=== PATIENT | male | born 1985 | race Asian ===

== ENCOUNTER 2022-05-17 11:02 | Inpatient (IN) | payer BC ==
--- OUTSIDE RECORDS SUMMARY | 2022-05-17 11:04 | XMS REPORT | Continuity of Care Document ---
:1985 Author Organization [facility] t Address [address] [place] [address] Care Team Providers Name Role Phone Pcp, Patient Does Not Have A Primary Care Physician +[id number] Therapy, [facility] Covid Infusion Attending Clinician Unavailable Jake Garcia MD Attending Clinician JAKE GARCIA Attending Clinician Unavailable Doctor Unassigned, [place] Attending Clinician Unavailable Payers Payer Name Policy Type Policy Number Effective Date Expiration Date S ource Problems This patient has no known problems. Allergies, Adverse Reactions, Alerts Allergy Allergy Status Severity Reaction(s) Onset Inactive Treating Comm ents Source Name Type Date Date Clinician NO KNOWN Drug Active Univers ALLERGIE Class ity of S [facility] Social History Social Habit Start Date Stop Date Quantity Comments Source Sex Assigned At [birth year] [facility] 00:00:00 00:00:[address] [facility] Smoking Status Start Date Stop Date Source Unknown if ever smoked [facility] Medications Ordered Filled Start Stop Current Ordering Indication Dosage Frequency Signature Comments Components Source Medication Medication Date Date Medication? Clinician (SIG) Name Name casirivimab 2020- No [id number] 1200mg 1,200 mg, Univers -imdevimab 04-18 Subcutaneo it y of (REGEN-COV 14:45: 13:27 [place], ONCE, [place] (EUA[place] 00 :00 1 dose, On Medical injection [facility] Branch 1,200 mg 04/18/21 at 0945, Routine casirivimab [id number] 1200mg 1,200 mg, [facility] -imdevimab 04-18 Subcutaneo it y of (REGEN-COV 14:45: 13:27 us, ONCE, [place] (EUA)) 00 :00 1 dose, On Medical injection Sat Branch 1,200 mg 04/18/21 at 0945, Routine Vital Signs Vital Name Observation Time Observation Value Comments Source Systolic blood 2021-04-18 14:12:00 160 mm[Hg] Univer sity of pressure [facility] Diastolic blood 2021-04-18 14:12:00 116 mm[Hg] Unive rsity [facility] Heart rate 2021-04-18 14:12:00 97 /min [facility] Body temperature 2021-04-18 14:12:00 36.11 [facility] Respiratory rate 2021-04-18 14:12:00 18 /[facility] Oxygen saturation in 2021-04-18 14:12:00 96 /min [facility] Arterial blood by [facility] Pulse oximetry [place] Body height 2021-04-18 13:29:00 172.7 cm [facility] Body weight 2021-04-18 13:29:00 106.595 kg [facility] BMI 2021-04-18 13:29:00 35.73 kg/m2 [facility] Procedures Procedure Date / Time Performed Performing Clinician Tamia e [id number] CONSENT 2021-04-18 05:01:00 [facility] Start End Encounter Admission Attending Care Care Encounter Source Date/Time Date/Time Type Type Clinicians Facility Department ID 2021-04-18 2021-04-18 Nurse Therapy, [facility] Covid Infusion [facility] [id number] [facility] 07:54:40 08:54:40 Visit Jake Garcia [id number] [place] [id number] [place] [facility] [id number] [facility] 053 Branch 2021-04-18 2021-04-[address] [facility] [id number] Univers 08:00:00 08:00:00 JAKE rowe of [facility] 2021-04-18 2021-04-18 Orders Doctor DANYA [id number] Univers 00:00:00 00:00:00 Only Unassigned, TOM [id number] ity of [place] [facility] [id number] [place] [id number] [place] [id number] Branch Results This patient has no known results.
[2022-05-17] MEDS ORDERED: CETIRIZINE HCL 5 MG TABLET ONE (11:47)
[2022-05-17] MEDS ORDERED: METOPROLOL TARTRATE 5 MG/5 ML INJ IV ONE ×2 (11:47→12:22)
[2022-05-17 11:48] LABS: Absolute Lymphocytes (CBC) 1.6 K/uL (0.7-4.9); Hematocrit 48.3 % (39.6-49.0); Lymphocytes % 19.5 % (15.3-44.8); MCV 86.5 fL (80-100); MPV 7.6 fL (7.6-11.3); RBC Red Blood Cell Count 5.58 M/uL (4.33-5.43)
[2022-05-17 12:00] LABS: SARS-CoV-2 Antigen Rapid Res Negative (Negative)
[2022-05-17 12:07] LABS: Albumin 3.8 g/dL (3.4-5.0); Bilirubin Total 0.3 mg/dL (0.2-1.0); Potassium 4.1 mmol/L (3.5-5.1); Protein, Total 7.9 g/dL (6.4-8.2)
[2022-05-17] MEDS ORDERED: HYDRALAZINE HCL 20 MG/ML VIAL ONE (13:04)
--- NOTE | 2022-05-17 14:27 | EDPHYS ---
Physician Documentation [facility] Name: Chin Tovar Age: 36 yrs Sex: Male : 1985 Arrival Date: 05/17/2022 Time: 11:04 Bed 14 Private MD: ED Physician Carie Mcgill HPI: 05/17 11:33 This 36 yrs old Male presents to ER via Ambulatory with complaints of Headache. snw 11:33 The patient complains of pain to the left side of the back of head and right side of snw the back of head. The patient describes the headache as pounding. Onset: The symptoms/episode began/occurred suddenly, 2 day(s) ago, and became persistent. Severity of symptoms: At its worst the pain was moderate. The symptoms are alleviated by nothing. pounding with cough, notes bp high all weekend. It is unknown whether or not the patient has had similar symptoms in the past. The patient has not recently seen a physician, and does not have an established primary care provider, sees only Dr. Cabrales. Historical: - Allergies: 11:17 No Known Allergies; vg1 - Home Meds: 11:17 aspirin 81 mg Oral cap [Active]; Metoprolol Tartrate Oral [Active]; losartan oral vg1 [Active]; - PMHx: 11:17 Atrial fibrillation; Hypertensive disorder; vg1 - PSHx: 11:17 None; vg1 - Immunization history:: Client reports having NOT received the Covid vaccine. - Social history:: Smoking status: Patient denies any tobacco usage or history of. ROS: 11:33 Eyes: Negative for injury, pain, redness, and discharge, ENT: Negative for injury, snw pain, and discharge, Neck: Negative for injury, pain, and swelling. 11:33 Respiratory: Negative for shortness of breath, cough, wheezing, and pleuritic chest pain, Abdomen/GI: Negative for abdominal pain, nausea, vomiting, diarrhea, and constipation, Back: Negative for injury and pain, : Negative for injury, bleeding, discharge, and swelling, MS/Extremity: Negative for injury and deformity, Skin: Negative for injury, rash, and discoloration. 11:33 Constitutional: Positive for fatigue. 11:33 Cardiovascular: Positive for palpitations. 11:33 Neuro: Positive for headache. Exam: 11:32 Constitutional: This is a well developed, well nourished patient who is awake, alert, snw and in no acute distress. Head/Face: Normocephalic, atraumatic. Eyes: Pupils equal round and reactive to light, extra-ocular motions intact. Lids and lashes normal. Conjunctiva and sclera are non-icteric and not injected. Cornea within normal limits. Periorbital areas with no swelling, redness, or edema. ENT: Nares patent. No nasal discharge, no septal abnormalities noted. Tympanic membranes are normal and external auditory canals are clear. Oropharynx with no redness, swelling, or masses, exudates, or evidence of obstruction, uvula midline. Mucous membranes moist. Neck: Trachea midline, no thyromegaly or masses palpated, and no cervical lymphadenopathy. Supple, full range of motion without nuchal rigidity, or vertebral point tenderness. No Meningismus. Chest/axilla: Normal chest wall appearance and motion. Nontender with no deformity. No lesions are appreciated. 11:32 Respiratory: Lungs have equal breath sounds bilaterally, clear to auscultation and percussion. No rales, rhonchi or wheezes noted. No increased work of breathing, no retractions or nasal flaring. Abdomen/GI: Soft, non-tender, with normal bowel sounds. No distension or tympany. No guarding or rebound. No evidence of tenderness throughout. Back: No spinal tenderness. No costovertebral tenderness. Full range of motion. Skin: Warm, dry with normal turgor. Normal color with no rashes, no lesions, and no evidence of cellulitis. MS/ Extremity: Pulses equal, no cyanosis. Neurovascular intact. Full, normal range of motion. Neuro: Awake and alert, GCS 15, oriented to person, place, time, and situation. Cranial nerves II-XII grossly intact. Motor strength 5/5 in all extremities. Sensory grossly intact. Cerebellar exam normal. Normal gait. Psych: Awake, alert, with orientation to person, place and time. Behavior, mood, and affect are within normal limits. 11:32 Cardiovascular: Rate: normal, actual rate is 87 bpm, Rhythm: irregularly irregular, Pulses: no pulse deficits are appreciated. Vital Signs: 11:14 BP 161 / 112; Pulse 87; Resp 16; Temp 98.8; Pulse Ox 100% ; Weight 111.13 kg; Height 5 vg1 ft. 8 in. (172.72 cm); Pain 0/10; 11:30 BP 148 / 108; Pulse 82; ko1 11:45 BP 148 / 106; Pulse 84; ko1 12:00 BP 143 / 114; Pulse 78; ko1 12:05 BP 144 / 109; Pulse 73; ko1 12:10 BP 150 / 113; Pulse 76; ko1 12:55 BP 156 / 119; Pulse 68; ko1 13:15 BP 140 / 96; ko1 13:30 BP 131 / 95; ko1 13:45 BP 126 / 99; ko1 14:00 BP 129 / 98; ko1 14:15 BP 139 / 98; ko1 14:30 BP 134 / 96; Pulse 96; ko1 14:45 BP 121 / 78; ko1 15:00 BP 135 / 102; Pulse 95; ko1 11:14 Body Mass Index 37.25 (111.13 kg, 172.72 cm) vg1 MDM: 11:25 Patient medically screened. snw 14:12 ED course: BP 144/117 mild headache, intermittent dizziness. snw 14:25 Data reviewed: vital signs, nurses notes. Data interpreted: Pulse oximetry: on room air snw is 100 %. Interpretation: normal. Counseling: I had a detailed discussion with the patient and/or guardian regarding: the historical points, exam findings, and any diagnostic results supporting the discharge/admit diagnosis, the presence of at least one elevated blood pressure reading (>120/80) during this emergency department visit, lab results, radiology results, the need for further work-up and treatment in the hospital. Response to treatment: There is no appreciated change of the patient's symptoms at this time, BP still elevated. Physician consultation: Odalis Clark MD was called at 14:26, was contacted at 14:26, regarding admission, to the telemetry unit. 05/17 11:27 Order name: CBC with Diff; Complete Time: 11:53 snw 05/17 11:27 Order name: CMP; Complete Time: 12:08 snw 05/17 11:27 Order name: Flu; Complete Time: 12:05 snw 05/17 11:27 Order name: SARS RAPID; Complete Time: 12:00 snw 05/17 15:22 Order name: Creatine Phosphokinase; Complete Time: 16:30 EDMS 05/17 15:22 Order name: Magnesium; Complete Time: 16:30 EDMS 05/17 15:22 Order name: NT PRO-BNP; Complete Time: 16:30 EDMS 05/17 15:23 Order name: Phosphorus; Complete Time: 16:30 EDMS 05/17 15:23 Order name: Urinalysis EDMS 05/17 15:23 Order name: Basic Metabolic Panel EDMS 05/17 15:23 Order name: Basic Metabolic Panel EDMS 05/17 15:23 Order name: CBC with Automated Diff EDMS 05/17 15:23 Order name: CBC with Automated Diff EDMS 05/17 15:24 Order name: Hemoglobin A1c EDMS 05/17 11:27 Order name: IV Saline Lock; Complete Time: 11:42 snw 05/17 11:27 Order name: Labs collected and sent; Complete Time: 11:42 snw 05/17 11:32 Order name: EKG; Complete Time: 11:32 snw 05/17 11:32 Order name: EKG - Nurse/Tech; Complete Time: 12:13 snw 05/17 11:59 Order name: BP Recheck: q20 min; Complete Time: 12:17 snw 05/17 15:20 Order name: Heart Healthy EDMS 05/17 15:24 Order name: Lipid Profile; Complete Time: 16:30 EDMS EC:16 Rate is 77 beats/min. Rhythm is irregularly irregular. QRS [place] is Normal. Clinical snw impression: Atrial Fibrillation. Administered Medications: 11:48 Drug: ZyrTEC - Cetirizine 10 mg Route: PO; ko1 11:56 Drug: Metoprolol 5 mg Route: IVP; Site: right antecubital; ko1 12:05 Drug: Metoprolol 5 mg Route: IVP; Site: right antecubital; ko1 12:24 Drug: Metoprolol 5 mg Route: IVP; Site: right forearm; ko1 13:04 Drug: hydrALAZINE 10 mg Route: IVP; Site: right antecubital; ko1 14:15 Drug: hydrALAZINE 10 mg Route: IVP; Site: right antecubital; ko1 Disposition Summary: 05/17/22 14:27 Hospitalization Ordered Hospitalization Status: Inpatient Admission snw Provider: Odalis Clark snw Location: Telemetry/MedSurg (Inpatient) snw Condition: Stable snw Problem: an acute exacerbation snw Symptoms: have worsened snw Bed/Room Type: Standard snw Room Assignment: 422(05/17/22 15:32) bd Diagnosis - Chronic atrial fibrillation snw - Hypertensive urgency snw Forms: - Medication Reconciliation Form snw - SBAR form snw Addendum: 05/20/2022 03:35 STAFF ATTESTATION STATEMENT: I was immediately available onsite in the emergency s d2 department for consultation in the care of this patient. I did not see or examine this patient. Carie Mcgill MD. Signatures: Dispatcher [employer] EDMS Ivanna Mendoza Shelly, FNP-C FNP-Marina Espinoza RN RN vg1 Carie Mcgill MD MD sd2 Trish Higgins RN RN ko1 Corrections: (The following items were deleted from the chart) 05/17 15:32 14:27 snw bd
--- NOTE | 2022-05-17 14:27 | ER ---
Nurse's Notes [facility] Name: Chin Tovar Age: 36 yrs Sex: Male : 1985 Arrival Date: 05/17/2022 Time: 11:04 Bed 14 Private MD: Diagnosis: Chronic atrial fibrillation;Hypertensive urgency Presentation: 05/17 11:14 Chief complaint: Patient states: blurred vision began at 2330, stated "tunnel vision" vg1 that lasted about 30 minutes, states at 0130 headache and tingling to Left hand/fingers and upper lip. Denies any pain, headache, dizziness, or NV at this time. Coronavirus screen: Vaccine status: Patient reports being unvaccinated. Client denies travel out of the [place] in the last 14 days. Ebola Screen: Patient negative for fever greater than or equal to 101.5 degrees Fahrenheit, and additional compatible Ebola Virus Disease symptoms Patient denies exposure to infectious person. Initial Sepsis Screen: Does the patient meet any 2 criteria? No. Patient's initial sepsis screen is negative. Does the patient have a suspected source of infection? No. Patient's initial sepsis screen is negative. Risk Assessment: Do you want to hurt yourself or someone else? Patient reports no desire to harm self or others. Onset of symptoms was May 16, 2022. 11:14 Method Of Arrival: Ambulatory vg1 11:14 Acuity: SYBIL 3 vg1 Triage Assessment: 11:17 Headache History: The patient has had previous headaches and this one is similar to vg1 previous episodes. General: Appears uncomfortable, Behavior is calm, cooperative. Pain: Denies pain. Complains of pain in head Pain currently is 3 out of 10 on a pain scale. Pain began 1 day ago. Also complains of no other associated symptoms. 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 Gait is steady, Speech is normal, Facial symmetry appears normal. Historical: - Allergies: : No Known Allergies; vg1 - Home Meds: : aspirin 81 mg Oral cap [Active]; Metoprolol Tartrate Oral [Active]; losartan oral vg1 [Active]; - PMHx: 11: Atrial fibrillation; Hypertensive disorder; vg1 - PSHx: 11:17 None; vg1 - Immunization history:: Client reports having NOT received the Covid vaccine. - Social history:: Smoking status: Patient denies any tobacco usage or history of. Screenin:20 Abuse screen: Denies threats or abuse. Denies injuries from another. Nutritional ko1 screening: No deficits noted. Tuberculosis screening: No symptoms or risk factors identified. Fall Risk None identified. Assessment: 11:20 General: Appears in no apparent distress. comfortable, Behavior is calm, cooperative, ko1 appropriate for age. Pain: Denies pain. Neuro: No deficits noted. Cardiovascular: Rhythm is atrial fibrillation. Respiratory: No deficits noted. GI: No deficits noted. : No deficits noted. EENT: No deficits noted. Derm: No deficits noted. Musculoskeletal: No deficits noted. Vital Signs: 11:14 BP 161 / 112; Pulse 87; Resp 16; Temp 98.8; Pulse Ox 100% ; Weight 111.13 kg; Height 5 vg1 ft. 8 in. (172.72 cm); Pain 0/10; 11:30 BP 148 / 108; Pulse 82; ko1 11:45 BP 148 / 106; Pulse 84; ko1 12:00 BP 143 / 114; Pulse 78; ko1 12:05 BP 144 / 109; Pulse 73; ko1 12:10 BP 150 / 113; Pulse 76; ko1 12:55 BP 156 / 119; Pulse 68; ko1 13:15 BP 140 / 96; ko1 13:30 BP 131 / 95; ko1 13:45 BP 126 / 99; ko1 14:00 BP 129 / 98; ko1 14:15 BP 139 / 98; ko1 14:30 BP 134 / 96; Pulse 96; ko1 14:45 BP 121 / 78; ko1 15:00 BP 135 / 102; Pulse 95; ko1 11:14 Body Mass Index 37.25 (111.13 kg, 172.72 cm) vg1 ED Course: 11:04 Patient arrived in ED. rg4 11:12 Yanna Buckley FNP-C is PHCP. snw 11:12 Carie Mcgill MD is Attending Physician. snw 11:17 Triage completed. vg1 11:17 Arm band placed on. vg1 11:20 Trish Higgins RN is Primary Nurse. ko1 11:20 Patient has correct armband on for positive identification. Bed in low position. Call ko1 light in reach. Side rails up X 1. Client placed on continuous cardiac and pulse oximetry monitoring. NIBP monitoring applied. athletic monitor on. 11:20 Inserted saline lock: 22 gauge in right antecubital area, using aseptic technique. ko1 Blood collected. 11:42 SARS RAPID Sent. ko1 11:42 Flu Sent. ko1 11:42 CBC with Diff Sent. ko1 11:42 CMP Sent. ko1 14:26 Odalis Clark MD is Hospitalizing Provider. snw Administered Medications: 11:48 Drug: ZyrTEC - Cetirizine 10 mg Route: PO; ko1 11:56 Drug: Metoprolol 5 mg Route: IVP; Site: right antecubital; ko1 12:05 Drug: Metoprolol 5 mg Route: IVP; Site: right antecubital; ko1 12:24 Drug: Metoprolol 5 mg Route: IVP; Site: right forearm; ko1 13:04 Drug: hydrALAZINE 10 mg Route: IVP; Site: right antecubital; ko1 14:15 Drug: hydrALAZINE 10 mg Route: IVP; Site: right antecubital; ko1 Medication: 11:20 VIS not applicable for this client. ko1 Outcome: 14:27 Decision to Hospitalize by Provider. snw 17:25 Patient left the ED. iw Signatures: Yanna Buckley, HOSPITAL SUPERVISOR-C HOSPITAL SUPERVISOR-Csnw Kim Fitzpatrick RN RN iw Garcia, Rubi rg4 Garcia, Victoria RN RN 1 Trish Higgins RN RN ko1
[2022-05-17] MEDS ORDERED: HYDROCODONE/APAP 5/325 MG TAB PO PRN (15:18)
[2022-05-17] MEDS ORDERED: ACETAMINOPHEN 500 MG TAB PO PRN (15:20)
[2022-05-17] MEDS ORDERED: ONDANSETRON 4 MG/2 ML VIAL IV PRN (15:20)
[2022-05-17] MEDS ORDERED: LABETALOL 20 MG/4ML SYRINGE IV PRN (15:24)
--- NOTE | 2022-05-17 15:26 | P.HP ---
Certification for Inpatient Patient admitted to: Inpatient With expected LOS: >2 Midnights Patient will require the following post-hospital care: None Practitioner: I am a practitioner with admitting privileges, knowledge of patient current condition, hospital course, and medical plan of care. Services: Services provided to patient in accordance with Admission requirements found in Title 42 Section 412.3 of the Code of Federal Regulations Patient History Date of Service: 05/17/22 Reason for admission: Elevated BP, Headache History of Present Illness: Patient is a 36-year-old male with a past medical history significant for atrial fibrillation, hypertension, obesity presents with complaint of blurry vision and headache onset yesterday while at work. Patient reported associated signs and symptoms of left finger numbness and left upper lip numbness. Patient denies any other signs and symptoms. Symptoms are aggravated or relieved by nothing. Patient decided to present to the hospital for medical evaluation. Allergies No Known Allergies Allergy (Unverified 05/17/22 17:59) Home medications list reviewed: Yes Home Medications: Losartan Potassium 100 mg PO DAILY 05/17/22 Metoprolol Succinate 100 mg PO DAILY 05/17/22 - Past Medical/Surgical History -: HTN -: Afib -: Obesity Past Surgical History: Reviewed- Non-Contributory - Family History Father -: Heart disease, Hypertension, Stroke Mother -: Hypertension - Social History Smoking Status: Never smoker Alcohol use: Yes CD- Drugs: No Caffeine use: Yes Place of Residence: Home Review of Systems General: Unremarkable Eyes: Other (Blurry vision) ENT: Unremarkable Respiratory: Unremarkable Cardiovascular: Unremarkable Gastrointestinal: Unremarkable Genitourinary: Unremarkable Musculoskeletal: Unremarkable Integumentary: Unremarkable Neurological: Other (Left upper Lip\left fingers numbness, headache ) Lymphatics: Unremarkable Physical Examination - Physical Exam General: Alert, Oriented x3, Cooperative HEENT: Atraumatic, PERRLA Neck: Supple, 2+ carotid pulse no bruit, JVD not distended Respiratory: Clear to auscultation bilaterally, Normal air movement Cardiovascular: No edema, Irregular heart rate/rhythm Capillary refill: <2 Seconds Gastrointestinal: Normal bowel sounds, Soft and benign Musculoskeletal: No clubbing, No swelling Integumentary: No rashes, No breakdown, No significant lesion, No tenderness/swelling Neurological: Normal gait, Normal speech, Normal strength at 5/5 x4 extr, Normal tone Lymphatics: No axilla or inguinal lymphadenopathy - Studies Laboratory Data (last 24 hrs) 05/17/22 11:35: Sodium 137, Potassium 4.1, BUN 15, Creatinine 1.21, Glucose 96, Total Bilirubin 0.3, AST 11 L, ALT 33, Alkaline Phosphatase 65 05/17/22 11:35: WBC 8.00, Hgb 16.3, Hct 48.3, Plt Count 302 Microbiology Data (last 24 hrs): 05/17/22 11:40 Nasopharnyx Influenza Type A Antigen Screen - Final 05/17/22 11:40 Nasopharnyx Influenza Type B Antigen Screen - Final Assessment and Plan - Plan -- Hypertensive urgency. Patient medicated with BP meds in the ER. Continue home medications and labetalol as needed. Echocardiogram pending to assess LV\valvular function and wall motion. 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 Cardiology consulted. Telemetry to monitor for any significant arrhythmia. Will await further recommendations. -- Suspected TIA. Patient complains of blurry vision/numbness to left upper lip and left fingers. MRI brain pending for further evaluation. Continue supportive care. --Skin paresthesias. Unclear etiology. Patient reports resolution at time of assessment. --Class II obesity. Likely secondary to excess calories intake. Patient counseled on weight reduction, diet and exercise therapy. --Headache. MRI brain for further evaluation. Patient reports improvement. Tylenol as needed. -- Chronic atrial fibrillation. Continue metoprolol. Telemetry to monitor for any significant arrhythmia. --Dyslipidemia. Further management per patient's PCP outpatient. --CKD 2. Baseline functions unknown. Will reassess levels in a.m. --Elevated BNP. BNP level 302. Echocardiogram pending. Continue supportive care. --DVT prophylaxis with Lovenox subQ. Discharge Plan: Home Plan to discharge in: Greater than 2 days - Advance Directives Does patient have a Living Will: No Does patient have a Durable POA for Healthcare: No - Code Status/Comfort Care Code Status Assessed: Yes Code Status: Full Code Physician Review: Patient Assessed, Agree with Above Assessment and Plan Critical Care: No
[2022-05-17] MEDS ORDERED: GUAIFENESIN/CODEINE 5ML UCUP PO PRN (15:27)
[2022-05-17] MEDS ORDERED: HYDRALAZINE HCL 20 MG/ML VIAL IV PRN (15:44)
[2022-05-17 16:25] LABS: Magnesium 2.2 mg/dL (1.8-2.4); Phosphorus 2.3 mg/dL (2.5-4.9)
[2022-05-17] MEDS: ASPIRIN 81 MG CHEWABLE TABLET PO SCH (17:00)
[2022-05-17] MEDS: METOPROLOL TAR 25 MG TAB PO SCH (18:00)
[2022-05-17] MEDS: ENOXAPARIN 40 MG/0.4 ML SQ SCH (18:39)
--- NOTE | 2022-05-17 19:42 | RAD REPORT ---
EXAM DESCRIPTION: MRI - Brain Wo Cont - 05/17/2022 7:25 pm CLINICAL HISTORY: CVA Headache, drowsiness, CVA symptomology COMPARISON: No comparisons TECHNIQUE: Multi-sequence, multiplanar MR imaging of the brain was performed without contrast. FINDINGS: No intracranial hemorrhage, hydrocephalus or extra-axial fluid collections. No edema or sh ift of midline structures. No findings to suspect brain mass. DWI is negative for acute CVA. Midline structures are normally formed. Mastoid air cells and paranasal sinuses are clear. IMPRESSION: Negative for acute CVA or other acute intracranial process.
[2022-05-17] MEDS ORDERED: MORPHINE 4 MG/ML SYR IV ONE (19:44)
[2022-05-17] MEDS: LOSARTAN POTASSIUM 50 MG TABLET PO SCH (21:00)
[2022-05-18] MEDS: METOPROLOL TAR 25 MG TAB PO SCH (06:00)
[2022-05-18 06:23] LABS: Hematocrit 47.9 % (39.6-49.0); Lymphocytes % 20.8 % (15.3-44.8); MCV 86.4 fL (80-100); MPV 7.6 fL (7.6-11.3); RBC Red Blood Cell Count 5.55 M/uL (4.33-5.43)
[2022-05-18 06:47] LABS: Potassium 4.2 mmol/L (3.5-5.1)
[2022-05-18 07:12] LABS: Folic Acid, (Folate) 15.3 ng/mL (3.1-17.5); Magnesium 2.3 mg/dL (1.8-2.4); Thyroid Stimulating Hormone 0.676 uIU/mL (0.360-3.740); Troponin High Sensitivity 5.5 pg/mL (<58.9)
[2022-05-18 07:14] LABS: Specific Gravity 1.027 (1.005-1.030); Urine Bilirubin NEGATIVE (Negative); Urine Blood Negative (Negative); Urine Clarity Turbid (Clear); Urine Color Yellow (Yellow); Urine Glucose NEGATIVE (Negative); Urine Mucus 4+ /HPF (None Seen); Urine Protein 1+ (Negative); Urine RBC <5 /HPF (None Seen); Urine Urobilinogen 1+ (Normal); Urine WBC Clump Rare /HPF (None Seen)
[2022-05-18] MEDS ORDERED: INFLUENZA VACCINE (for 6+ mo) 0.5 ML DOSE IMVAC ONE (08:00)
[2022-05-18] MEDS: LOSARTAN POTASSIUM 50 MG TABLET PO SCH (09:00)
[2022-05-18] MEDS: ASPIRIN 81 MG CHEWABLE TABLET PO SCH (09:00)
[2022-05-18] MEDS: ENOXAPARIN 40 MG/0.4 ML SQ SCH (09:06)
[2022-05-18] MEDS ORDERED: CYANOCOBALAMIN 1,000 MCG TAB SL ONE (12:29)
--- NOTE | 2022-05-18 13:58 | ECHO ---
HEIGHT: 5 ft 8 in WEIGHT: 244 lb 15.995 oz DATE OF STUDY: 05/18/[address]: Odalis Clark MD 2-DIMENSIONAL: YES M.MODE: YES DOPPLER: YES COLOR FLOW: YES TDS: NO PORTABLE: YES DEFINITY: NO BUBBLE STUDY: NO DIAGNOSIS: HYPERTENSIVE URGENCY CARDIAC HISTORY: CATHERIZATION: NO SURGERY: NO PROSTHETIC VALVE: NO PACEMAKER: NO MEASUREMENTS (cm) DIASTOLIC (NORMALS) SYSTOLIC (NORMALS) IVSd 1.3 (0.6-1.2) LA Diam 3.3 (1.9-4.0) LVEF 54% LVIDd 3.7 (3.5-5.7) LVIDs 2.7 (2.0-3.5) %FS 27% LVPWd 1.3 (0.6-1.2) Ao Diam 2.9 (2.0-3.7) 2 DIMENSIONAL ASSESSMENT: RIGHT ATRIUM: NORMAL LEFT ATRIUM: NORMAL RIGHT VENTRICLE: NORMAL LEFT VENTRICLE: NORMAL TRICUSPID VALVE: MILD TRICUSPID REGURGITATION MITRAL VALVE: NORMAL PULMONIC VALVE: NORMAL AORTIC VALVE: NORMAL PERICARDIAL EFFUSION: NONE AORTIC ROOT: NORMAL LEFT VENTRICULAR WALL MOTION: NORMAL. DOPPLER/COLOR FLOW: MILD TRICUSPID REGURGITATION/ MILD MITRAL REGURGITATION. COMMENTS: NORMAL LEFT VENTRICULAR EJECTION FRACTION 55-60%. NORMAL WALL MOTION. MILD TRICUSPID REGURGITATION/ MILD MITRAL REGURGITATION. NORMAL DIASTOLIC FUNCTION. TECHNOLOGIST: PIPE SMITH
--- NOTE | 2022-05-18 14:04 | EKG ---
Test Date: 2022-05-17 Test Time: 12:08:08 Diesel Technician Mechanic: OSVALDO MEASUREMENT RESULTS: Intervals: Rate: 77 TX: QRSD: 92 QT: 354 QTc: 400 Watkins: P: TX: QRS: 24 T: 18 INTERPRETIVE STATEMENTS: Atrial fibrillation Abnormal ECG Compared to ECG 04/12/2012 11:30:23 ST (T wave) deviation no longer present Electronically Signed On 05-18-22 14:01:58 CDT by Jose L Davenport
[2022-05-18] MEDS: SOTALOL HCL 80 MG TAB PO SCH ×2 (15:14→23:08)
[2022-05-18 15:57] VITALS: BMI 37.2
--- NOTE | 2022-05-18 22:04 | CON ---
Reason For Consultation: Atrial fibrillation and elevated heart rate with atrial fibrillation. History Of Present Illness: This is a 36-year-old male with history of atrial fibrillation for many years that is controlled with metoprolol and on aspirin. He has been having blurred vision and heada ezekiel and numbness of upper lip and face and there was concern for stroke. He was admitted to the [facility] evaluation. Seen by bedside. He was having palpitations. Heart rate is controlled and he is not on anticoagulation. Past Medical History: As outlined above in the HPI including AFib and hypertension. Medications: Refer to reconciliation sheet for detailed list. Allergies: THERE ARE NO KNOWN DRUG ALLERGIES. Family History: No premature coronary artery disease or cancer. Social History: Does not smoke or drink. Does not use any drugs. Review of Systems: All systems reviewed and they are negative except for what is mentioned in HPI. Physical Examination: Vital Signs: Temperature is 97.5, pulse 80, breathing at 18, blood pressure 148/76, saturating 100%. General: A pleasant middle-aged male, in no apparent distress. Head And Neck: Pupils are equal and reactive to light. Intact eye movements. No JVD. No cervical lymphadenopathy. Neck is supple. Thyroid is not enlarged. Lungs: Clear to auscultation bilaterally. No rhonchi, wheezing, or crackles. No accessory muscle u se. Heart: Regular. No extra sounds. Abdomen: Soft, nontender. Bowel sounds positive. No organomegaly. No masses or hernia. No rigidi ty or rebound. Extremities: No edema, clubbing, or cyanosis. Intact pulses. Skin: No rashes. Neurologic: Alert, awake, and oriented x3. No acute focal deficits appreciated. Investigations: MRI of the brain showed no acute process. Assessment And Recommendations: 1.Atrial fibrillation, rate is controlled. However, recommend sotalol 80 mg twice a day and also th is patient should be placed on anticoagulation with Eliquis as his symptoms were suggestive of transi ent ischemic attack and he needs a stroke protection. Obtain echocardiogram and monitor EKG with sot alol administration and specifically the QTc interval. 2.Hypertension. Blood pressure is borderline. Sotalol was introduced. We will re-evaluate tomorro wAdriane ZIMMERMAN/MODL Voice ID: [id number] Report ID: [id number]
[2022-05-19 08:29] VITALS: BP 143/71; TEMP 97.4
[2022-05-19] MEDS: ENOXAPARIN 40 MG/0.4 ML SQ SCH (08:40)
[2022-05-19] MEDS: ASPIRIN 81 MG CHEWABLE TABLET PO SCH (08:40)
[2022-05-19] MEDS: SOTALOL HCL 80 MG TAB PO SCH (08:41)
[2022-05-19] MEDS ORDERED: METOPROLOL XL 100 MG TAB PO SCH (09:00)
[2022-05-19] MEDS ORDERED: LOSARTAN POTASSIUM 50 MG TABLET PO SCH (09:00)
[2022-05-19 09:29] VITALS: O2SAT 99
--- NOTE | 2022-05-19 15:46 | PN ---
Date of Progress Note: 05/19/2022 Subjective: Seen by bedside. Doing clinically better. Heart rate is controlled. Review of Systems: No chest pain, shortness of breath, orthopnea, cough, nausea, vomiting, diarrhea. No abdominal pain. No dysuria, polyuria, or urinary urgency. No skin rash. All other systems reviewed are negative. Physical Examination: Vital Signs: Reviewed. Head and Neck: Pupils are equal, reactive to light. Intact eye movements. No JVD. No cervical lym phadenopathy. Neck is supple. Thyroid is not enlarged. Lungs: Clear to auscultation bilaterally. No rhonchi, wheezing, or crackles. No accessory muscle u se. Heart: Irregularly irregular. No extra sounds. Abdomen: Soft, nontender. Bowel sounds positive. No organomegaly. No masses or hernia. No rigidi ty or rebound. Extremities: No edema, clubbing, or cyanosis. Intact pulses. Skin: No rashes. Neurologic: Alert, awake, oriented x3. No acute focal deficits appreciated. Investigations: Labs were reviewed. Assessment And Recommendations: 1.Atrial fibrillation. Rate is controlled. Continue with sotalol. Check EKG. QTc interval is nor mal. Given the heart rate is controlled, patient can be released to go home. Follow up as an outpat ient and I will recommend to send him home on Eliquis 5 mg twice a day along with the sotalol. 2.Hypertension. Blood pressure stable. Continue home medications. SR/MODL Voice ID: [id number] Report ID: [id number]
== END 2022-05-19 12:20 | disposition home or self-care (01) | DRG 305 ==
LOC: ER 11:02 → OBSVTOIN 15:16 → INTOOBSV 15:16 → ERHOLD 15:16 → 4TH 17:21
PROVIDERS: ADMIT Hospitalist; ATTEND Hospitalist
DX: I16.0 Hypertensive urgency (principal); I48.20 Chronic atrial fibrillation, unspecified; E78.5 Hyperlipidemia, unspecified; I12.9 Hypertensive chronic kidney disease with stage 1 through stage 4 chronic kidney disease, or unspecified chronic kidney disease; N18.2 Chronic kidney disease, stage 2 (mild); R20.2 Paresthesia of skin; R79.89 Other specified abnormal findings of blood chemistry; E66.09 Other obesity due to excess calories; Z68.37 Body mass index [BMI] 37.0-37.9, adult; Z79.82 Long term (current) use of aspirin; Z79.899 Other long term (current) drug therapy; Z28.310 Unvaccinated for COVID-19; Z20.822 Contact with and (suspected) exposure to COVID-19
CPT/HCPCS: 36415; 70551; 80048; 80053; 80061; 81001; 82088; 82533; 82550; 82607; 82746; 83036; 83540; 83735; 83880; 84100; 84244; 84439; 84443; 84484; 85025; 87086; 87088; 87804; 87811; 93005; 93306; 99284; J0360; J1650; J2405

== ENCOUNTER 2023-10-03 13:40 | Observation (INO) | payer BC ==
[2023-10-03 14:48] LABS: Absolute Lymphocytes (CBC) 0.9 K/uL (0.7-4.9); Basophils % 0.2 % (0-1.3); Eosinophils % 0.1 % (0-4.4); Hematocrit 47.2 % (39.6-49.0); Lymphocytes % 5.2 % (15.3-44.8); MCV 86.5 fL (80-100); MPV 7.9 fL (7.6-11.3); Platelets 315 thou/uL (152-406); RBC Red Blood Cell Count 5.46 M/uL (4.33-5.43)
[2023-10-03 15:03] LABS: Specific Gravity 1.021 (1.005-1.030); Urine Bacteria <20 /HPF (<20); Urine Bilirubin NEGATIVE (Negative); Urine Blood Negative (Negative); Urine Clarity Extremely Turbid (Clear); Urine Color Light-Orange (Yellow); Urine Glucose NEGATIVE (Negative); Urine Mucus Slight /HPF (None Seen); Urine Protein TRACE (Negative); Urine Urobilinogen Normal (Normal)
[2023-10-03 15:09] LABS: Albumin 4.1 g/dL (3.4-5.0); Bilirubin Total 0.6 mg/dL (0.2-1.0); Globulin 4.1 g/dL (2.3-3.5); Protein, Total 8.2 g/dL (6.4-8.2)
[2023-10-03 16:13] LABS: Blood Morphology Comment NOT SEEN (NOT SEEN); Platelet Estimate ADEQ; White Blood Cell Scan OK (OK)
--- NOTE | 2023-10-03 16:20 | RAD REPORT ---
EXAM DESCRIPTION: CT - Abdomen Pelvis W Contrast - 10/03/2023 3:36 pm CLINICAL HISTORY: Abd pain;Abdominal distention COMPARISON: No comparisons TECHNIQUE: Thin cut axial CT imaging of the abdomen and pelvis was performed following intravenous a dministration of 95 mL Isovue 300. Multiplanar reformats were generated and reviewed. All CT scans are performed using dose optimization technique as appropriate and may include automated exposure control or mA/KV adjustment according to patient size. FINDINGS: No suspicious findings in the lung bases. The liver, spleen, adrenal glands, and pancreas show no suspicious findings. Gallbladder and biliary tree are also without suspicious finding. Symmetric renal function is seen with no hydronephrosis or suspicious renal mass. Right lower pole co rtical 1 cm cyst. Prominent caliber of the proximal appendix, with mucosal hyperenhancement, measuring approximately 12 mm in caliber. Mildly hyperdense appendicolith. The distal aspect of the appendix is not significant ly distended. Mild adjacent fat stranding. No dilated bowel loops or other bowel wall thickening. No free air, free fluid or localized collections. No hernia, mass or bulky lymphadenopathy. The urinary bladder is without significant finding. No suspicious bony findings. IMPRESSION: Findings suggestive of acute early appendicitis with distention of the proximal aspect o f the appendix. Small proximal appendicolith. The findings were communicated to Santiago Weiner on 10/03/2023 at 15:58 hours.
--- NOTE | 2023-10-03 16:28 | EDPHYS ---
Physician Documentation [facility] Name: Chin Tovar Age: 38 yrs Sex: Male : 1985 Arrival Date: 10/03/2023 Time: 13:40 Bed IW10 Private MD: ED Physician Yehuda Saleh HPI: 10/02 14:24 This 38 yrs old Male presents to ER via Ambulatory with complaints of Abdominal sb4 Pain. 14:24 The patient presents with abdominal pain that is diffuse. Onset: The symptoms/episode sb4 began/occurred last night. The symptoms do not radiate. Associated signs and symptoms: Pertinent positives: fever, vomiting. The symptoms are described as crampy. Modifying factors: The symptoms are alleviated by nothing, the symptoms are aggravated by movement. The patient has not experienced similar symptoms in the past. The patient has not recently seen a physician. Historical: - Allergies: 14:04 No Known Allergies; iw - Home Meds: 14:04 losartan 100 mg oral tablet daily [Active]; amlodipine 5 mg oral tablet 2 times per day iw [Active]; sotalol 80 mg Oral tablet 2 times per day [Active]; Eliquis 5 mg oral tablet 2 times per day [Active]; - PMHx: 14:04 Atrial fibrillation; Hypertensive disorder; iw - PSHx: 14:04 None; iw - Immunization history:: Adult Immunizations up to date. - Social history:: Smoking status: Patient denies any tobacco usage or history of. ROS: 14:24 Constitutional: Negative for fever, chills, and weight loss, sb4 14:24 Eyes: Negative for injury, pain, redness, and discharge, ENT: Negative for injury, pain, and discharge, 14:24 Abdomen/GI: Positive for abdominal pain, vomiting, abdominal distension, 14:24 All other systems are negative, Exam: 14:24 Constitutional: This is a well developed, well nourished patient who is awake, alert, sb4 and in no acute distress. Head/Face: Normocephalic, atraumatic. Eyes: Extra-ocular motions intact. Periorbital areas with no swelling, redness, or edema. ENT: Mucous membranes moist. Cardiovascular: Regular rate and rhythm with a normal S1 and S2. Respiratory: Lungs have equal breath sounds bilaterally, clear to auscultation and percussion. No rales, rhonchi or wheezes noted. No increased work of breathing, no retractions or nasal flaring. Abdomen/GI: Soft, non-tender, no distension. Skin: Warm, dry with normal turgor. Normal color with no rashes, no lesions, and no evidence of cellulitis. MS/ Extremity: Pulses equal, no cyanosis. Neurovascular intact. Full, normal range of motion. Neuro: Awake and alert, GCS 15, oriented to person, place, time, and situation. Motor strength 5/5 in all extremities. Sensory grossly intact. Vital Signs: 14:03 BP 124 / 97; Pulse 85; Resp 16; Temp 96.9; Pulse Ox 100% on R/A; Weight 114.31 kg; iw Height 5 ft. 8 in. ; Pain 9/10; 16:00 BP 127 / 89; Pulse 88; Resp 18 S; Pulse Ox 99% on R/A; as6 18:05 BP 128 / 98; Pulse 92; Resp 16 S; Pulse Ox 100% on R/A; as6 19:26 BP 126 / 98; Pulse 74; Resp 18 S; Pulse Ox 100% on R/A; as6 20:30 BP 133 / 85; Pulse 84; Resp 18; Temp 97.3; Pulse Ox 100% ; jj7 14:03 Body Mass Index 38.32 (114.31 kg, 172.72 cm) iw 14:03 Pain Scale: Adult iw MDM: 14:11 Patient medically screened. sb4 16:39 Data reviewed: vital signs, nurses notes, lab test result(s), radiologic studies, and sb4 as a result, I will admit patient. Consideration of Admission/Observation Patient was admitted/placed on observation. Management of patient was discussed with the following: Hospitalist: Dr. lCark. Copying Machine Mechanic: general surgery, Dr. Roach. Counseling: I had a detailed discussion with the patient and/or guardian regarding the historical points, exam findings, and any diagnostic results supporting the discharge/admit diagnosis, lab results, radiology results, to return to the emergency department if symptoms worsen or persist or if there are any questions or concerns that arise at home. 10/02 14:11 Order name: CBC with Diff; Complete Time: 16:17 sb4 10/02 14:11 Order name: CMP; Complete Time: 15:16 sb4 10/02 14:11 Order name: Lipase; Complete Time: 15:16 sb4 10/02 14:11 Order name: Urinalysis w/ reflexes; Complete Time: 15:05 sb4 10/02 16:00 Order name: Blood Culture Adult (2) sb4 10/02 16:00 Order name: Lactate w/ 2H reflex if indic.; Complete Time: 17:20 sb4 10/02 16:00 Order name: PT-INR; Complete Time: 17:07 sb4 10/02 16:00 Order name: Ptt, Activated; Complete Time: 17:07 sb4 10/02 16:13 Order name: CBC Smear Scan; Complete Time: 16:17 EDMS 10/02 17:12 Order name: CBC with Automated Diff EDMS 10/02 17:12 Order name: CBC with Automated Diff EDMS 10/02 17:12 Order name: Comprehensive Metabolic Panel EDMS 10/02 17:12 Order name: Comprehensive Metabolic Panel EDMS 10/02 14:11 Order name: CT Abd/Pelvis - IV Contrast Only; Complete Time: 16:21 sb4 10/02 17:12 Order name: CONS Physician Consult EDMS 10/02 14:11 Order name: IV Saline Lock; Complete Time: 14:42 sb4 10/02 14:11 Order name: Labs collected and sent; Complete Time: 14:42 sb4 Administered Medications: 17:33 Drug: Ciprofloxacin IVPB 400 mg 200 ml IVPB once over 60 mins Volume: 200 ml; Route: as6 IVPB; Infused Over: 60 mins; Site: left antecubital; 19:27 Follow up: Response: No adverse reaction; IV Status: Completed infusion; IV Intake: as6 200ml 17:33 Drug: metroNIDAZOLE IVPB 500 mg 100 ml IVPB at 200 ml/hr once over 30 mins Volume: 100 as6 ml; Route: IVPB; Rate: 200 ml/hr; Infused Over: 30 mins; Site: right antecubital; 19:27 Follow up: Response: No adverse reaction; IV Status: Completed infusion; IV Intake: as6 100ml 17:33 Drug: NS 0.9% IV 1000 ml IV at 1 bolus Per protocol; 1000 mL bolus Route: IV; Rate: 1 as6 bolus; Site: right antecubital; 19:27 Follow up: Response: No adverse reaction; IV Status: Completed infusion; IV Intake: as6 1000ml Disposition: 17:57 I was immediately available on-site in the Emergency Department for consultation in the ms3 care of the patient. Disposition Summary: 10/03/23 16:27 Hospitalization Ordered Notes: Hospitalization Status: Inpatient Admission sb4 Provider: Oadlis Clark Condition: Fair sb4 Problem: new sb4 Symptoms: are unchanged sb4 Bed/Room Type: Standard sb4 Location: Telemetry/MedSurg (Inpatient)(10/03/23 20:30) as6 Room Assignment: 222(10/03/23 20:30) as6 Diagnosis - acute appendicitis sb4 Forms: - Medication Reconciliation Form sb4 - SBAR form sb4 - Leadership Thank You Letter sb4 Signatures: Dispatcher [employer] EDKim Olmos, RN RN iw Yehuda Saleh DO DO ms3 Paulo Tierney RN RN as6 Yoanna Armendariz RN RN tami3 Erin Olea, PA-C PA-C sb4 Corrections: (The following items were deleted from the chart) 16:27 16:27 Acute appendicitis with generalized peritonitis sb4 sb4 17:46 16:27 Telemetry/MedSurg (Inpatient) sb4 kb3 17:46 16:27 sb4 kb3 20:30 17:46 [facility] ER HOLD kb3 as6 20:30 17:46 ERHOLD- kb3 as6
--- NOTE | 2023-10-03 16:28 | ER ---
Nurse's Notes [facility] Name: Chin Tovar Age: 38 yrs Sex: Male : 1985 Arrival Date: 10/03/2023 Time: 13:40 Bed IW10 Private MD: Diagnosis: acute appendicitis Presentation: 10/02 14:03 Chief complaint: Patient states: woke up at 0830 and felt bloated , ate taco hyman iw yesterday , took gas x , still feeling a lot of pressure that is getting worse throughout the day. Coronavirus screen: At this time, the client does not indicate any symptoms associated with coronavirus-19. Ebola Screen: Patient negative for fever greater than or equal to 101.5 degrees Fahrenheit, and additional compatible Ebola Virus Disease symptoms Patient denies exposure to infectious person. Patient denies travel to an Ebola-affected area in the 21 days before illness onset. No symptoms or risks identified at this time. Initial Sepsis Screen: Does the patient meet any 2 criteria? No. Patient's initial sepsis screen is negative. Does the patient have a suspected source of infection? No. Patient's initial sepsis screen is negative. Risk Assessment: Do you want to hurt yourself or someone else? Patient reports no desire to harm self or others. Onset of symptoms was October 03, 2023. 14:03 Method Of Arrival: Ambulatory iw 14:03 Acuity: SYBIL 3 iw Historical: - Allergies: 14:04 No Known Allergies; iw - Home Meds: 14:04 losartan 100 mg oral tablet daily [Active]; amlodipine 5 mg oral tablet 2 times per day iw [Active]; sotalol 80 mg Oral tablet 2 times per day [Active]; Eliquis 5 mg oral tablet 2 times per day [Active]; - PMHx: 14:04 Atrial fibrillation; Hypertensive disorder; iw - PSHx: 14:04 None; iw - Immunization history:: Adult Immunizations up to date. - Social history:: Smoking status: Patient denies any tobacco usage or history of. Screenin:58 [facility] ED Fall Risk Assessment (Adult) Score/Fall Risk Level 0 - 2 = Low Risk. Abuse as6 screen: Denies threats or abuse. Denies injuries from another. Nutritional screening: No deficits noted. Tuberculosis screening: No symptoms or risk factors identified. Assessment: 16:00 General: Appears in no apparent distress. Behavior is calm, cooperative. Pain: as6 Complains of pain in abdomen. Neuro: Level of Consciousness is awake, alert, obeys commands, Oriented to person, place, time, situation. Cardiovascular: Capillary refill < 3 seconds Patient's skin is warm and dry. Respiratory: Respiratory effort is even, unlabored, Respiratory pattern is regular, symmetrical. GI: Reports lower abdominal pain. GI: Abdomen is distended, Reports nausea, vomiting. : No deficits noted. No signs and/or symptoms were reported regarding the genitourinary system. EENT: No deficits noted. No signs and/or symptoms were reported regarding the EENT system. Derm: Skin is intact, is healthy with good turgor. Musculoskeletal: Circulation, motion, and sensation intact. 18:04 Reassessment: Patient appears in no apparent distress at this time. Patient and/or as6 family updated on plan of care and expected duration. Pain level reassessed. Patient is alert, oriented x 3, equal unlabored respirations, skin warm/dry/pink. pt states minimal pain. denies wanted medication at this time. family at bedside. 19:27 Reassessment: Patient appears in no apparent distress at this time. as6 20:56 Reassessment: CHART FAXED TO 2 ND FLOOR. SPOKE WITH RAY CHARGE NURSE AND REPORT jj7 HAS BEEN RECEIVED. Vital Signs: 14:03 BP 124 / 97; Pulse 85; Resp 16; Temp 96.9; Pulse Ox 100% on R/A; Weight 114.31 kg; iw Height 5 ft. 8 in. ; Pain 9/10; 16:00 BP 127 / 89; Pulse 88; Resp 18 S; Pulse Ox 99% on R/A; as6 18:05 BP 128 / 98; Pulse 92; Resp 16 S; Pulse Ox 100% on R/A; as6 19:26 BP 126 / 98; Pulse 74; Resp 18 S; Pulse Ox 100% on R/A; as6 20:30 BP 133 / 85; Pulse 84; Resp 18; Temp 97.3; Pulse Ox 100% ; jj7 14:03 Body Mass Index 38.32 (114.31 kg, 172.72 cm) iw 14:03 Pain Scale: Adult iw ED Course: 13:41 Patient arrived in ED. mr 13:45 Erin Olea PA-C is PHCP. sb4 13:45 Yehuda Saleh DO is Attending Physician. sb4 14:04 Triage completed. iw 14:06 Arm band placed on. iw 14:42 CBC with Diff Sent. bc6 14:42 CMP Sent. bc6 14:42 Lipase Sent. bc6 14:42 Inserted saline lock: 20 gauge in right antecubital area, using aseptic technique. as6 Blood collected. 14:46 Urinalysis w/ reflexes Sent. bc6 15:25 Paulo Tierney, MÓNICA is Primary Nurse. as6 15:38 CT Abd/Pelvis - IV Contrast Only In Process Unspecified. EDMS 16:27 Odalis Clark MD is Hospitalizing Provider. sb4 16:55 Inserted saline lock: 22 gauge in left antecubital area, using aseptic technique. Blood as6 collected. 17:59 Bed in low position. Call light in reach. Side rails up X 1. Provided Education on: as6 need for admit . 17:59 No provider procedures requiring assistance completed. Patient admitted, IV remains in as6 place. Administered Medications: 17:33 Drug: Ciprofloxacin IVPB 400 mg 200 ml IVPB once over 60 mins Volume: 200 ml; Route: as6 IVPB; Infused Over: 60 mins; Site: left antecubital; 19:27 Follow up: Response: No adverse reaction; IV Status: Completed infusion; IV Intake: as6 200ml 17:33 Drug: metroNIDAZOLE IVPB 500 mg 100 ml IVPB at 200 ml/hr once over 30 mins Volume: 100 as6 ml; Route: IVPB; Rate: 200 ml/hr; Infused Over: 30 mins; Site: right antecubital; 19:27 Follow up: Response: No adverse reaction; IV Status: Completed infusion; IV Intake: as6 100ml 17:33 Drug: NS 0.9% IV 1000 ml IV at 1 bolus Per protocol; 1000 mL bolus Route: IV; Rate: 1 as6 bolus; Site: right antecubital; 19:27 Follow up: Response: No adverse reaction; IV Status: Completed infusion; IV Intake: as6 1000ml Medication: 17:59 VIS not applicable for this client. as6 Intake: 19:27 IV: 1000ml; Total: 1000ml. as6 19:27 IV: 100ml; Total: 1100ml. as6 19:27 IV: 200ml; Total: 1300ml. as6 Outcome: 16:27 Decision to Hospitalize by Provider. sb4 17:59 Admitted to ER Hold. Please see [facility] for further documentation. as6 17:59 Condition: stable 17:59 Instructed on the need for admit, 21:35 Admitted to Med/surg accompanied by nurse, room 222, Report called to SBAR AND REPORT jj7 FAXED TO RAY CHARGE NURSE 21:38 Patient left the ED. as6 Signatures: Dispatcher [employer] EDWV Kayy Yates, Reg Reg Kim Fitzpatrick, RN RN iw Paulo Tierney RN RN as6 Kristal Dominguez RN RN jjErin Robison PA-C PARama sb4 Arlene Peters bc6 Corrections: (The following items were deleted from the chart) 15:01 14:03 BP 124 / 97; Pulse 85bpm; Resp 16bpm; Pulse Ox 100% RA; 114.31 kg; Height 5 ft. 8 iw in.; BMI: 38.3; Pain 9/10, Adult; iw 16:55 14:42 Inserted saline lock: 20 gauge in left antecubital area, using aseptic technique. as6 Blood collected. bc6
[2023-10-03 17:06] LABS: Protime INR 1.34
[2023-10-03] MEDS ORDERED: ONDANSETRON 4 MG/2 ML VIAL IV PRN (17:08)
[2023-10-03] MEDS ORDERED: ACETAMINOPHEN 500 MG TAB PO PRN (17:08)
[2023-10-03] MEDS ORDERED: METRONIDAZOLE 500mg IVPB 500 MG/100 ML BAG IV ONE (17:12)
[2023-10-03] MEDS ORDERED: CIPROFLOXACIN 400mg IV 400 MG/200 ML BAG IV ONE (17:12)
[2023-10-03] MEDS: NA CHLORIDE 0.9% 1,000 ML IV SCH (18:00)
[2023-10-03] MEDS ORDERED: NA CHLORIDE 0.9% 0 ML ONE (19:53)
[2023-10-03] MEDS ORDERED: NA CHLORIDE 0.9% 1,000 ML ONE (19:54)
[2023-10-03] MEDS ORDERED: PIPERACIL/TAZO 3.375 GM VIAL IV ONE (19:54)
[2023-10-03] MEDS: INFLUENZA VACCINE (for 6+ mo) 0.5 ML DOSE IMVAC ONE (21:46)
[2023-10-03 21:48] VITALS: BMI 38.4
[2023-10-04] MEDS: PIPER TAZO 3.375 GM in NA CHLORIDE 0.9% 100 ML IV SCH (01:54)
[2023-10-04 04:28] LABS: Absolute Lymphocytes (CBC) 2.3 K/uL (0.7-4.9); Basophils % 0.2 % (0-1.3); Eosinophils % 0.2 % (0-4.4); Hemoglobin 14.5 g/dL (13.6-17.9); Lymphocytes % 15.2 % (15.3-44.8); MCV 86.6 fL (80-100); MPV 7.9 fL (7.6-11.3); Platelets 252 thou/uL (152-406); RBC Red Blood Cell Count 4.96 M/uL (4.33-5.43)
[2023-10-04 04:39] LABS: Albumin 3.3 g/dL (3.4-5.0); Albumin/Globulin Ratio 0.9 (1.1-1.8); Anion Gap 9.8 mEq/L (5.0-15.0); Bilirubin Total 0.9 mg/dL (0.2-1.0); Globulin 3.6 g/dL (2.3-3.5); Potassium 3.8 mEq/L (3.5-5.1); Protein, Total 6.9 g/dL (6.4-8.2)
[2023-10-04] MEDS: APIXABAN 5 MG TABLET PO SCH (06:00)
[2023-10-04] MEDS ORDERED: ROCURONIUM 50 MG/5 ML VIAL IV ONE (07:11)
[2023-10-04] MEDS ORDERED: LIDOCAINE 2% MPF 5 ML VIAL ONE (07:11)
[2023-10-04] MEDS ORDERED: dexAMETHasone 10 MG/ML VIAL ONE (07:11)
[2023-10-04] MEDS ORDERED: ONDANSETRON 4 MG/2 ML VIAL ONE (07:11)
[2023-10-04] MEDS ORDERED: KETOROLAC 30 MG/ML INJ ONE (07:11)
[2023-10-04] MEDS ORDERED: MIDAZOLAM HCL 2 MG/2 ML INJ ONE (07:12)
[2023-10-04] MEDS ORDERED: propofoL 200 MG/20 ML VIAL IV ONE (07:12)
[2023-10-04] MEDS ORDERED: FENTANYL CITR 100 MCG/2 ML ONE (07:12)
[2023-10-04] MEDS: Ringers Lactate 1,000 ML IV ONE (07:13)
--- NOTE | 2023-10-04 07:23 | P.HP ---
Certification for Inpatient Patient admitted to: Inpatient With expected LOS: <2 Midnights Practitioner: I am a practitioner with admitting privileges, knowledge of patient current condition, hospital course, and medical plan of care. Services: Services provided to patient in accordance with Admission requirements found in Title 42 Section 412.3 of the Code of Federal Regulations Patient History Date of Service: 10/04/23 Reason for admission: Abdominal pain History of Present Illness: 38-year-old male with a past medical history of hypertension, atrial fibrillation on Eliquis 5 mg twice daily. Presented to the emergency room with diffuse abdominal pain. He reports symptoms started last night, does not radiate, reports associated fever, nausea vomiting. Abdominal pain described as cramping, he reports symptoms are not relieved by anything. He has not taken anything [id number]. CT evaluation admit for acute appendicitis with surgery consulted. Laboratory evaluation leukocytosis WBC 17.60, early left shift, Allergies No Known Allergies Allergy (Verified 10/03/23 21:44) Home Medications: Losartan Potassium 100 mg PO DAILY 05/17/22 Apixaban [Eliquis] 5 mg PO BID #60 tablet 05/18/22 Cyanocobalamin/Cobamamide [Vitamin B-12 5,000 Mcg Tab Sl] 1 each SL DAILY #30 tab 05/18/22 Sotalol HCl [Betapace*] 80 mg PO BID #60 tab 05/18/22 Amlodipine Besylate 5 mg PO BID 10/03/23 - Past Medical/Surgical History Has patient received pneumonia vaccine in the past: No Diabetic: No -: HTN -: Afib -: Obesity - Family History Father -: Heart disease, Hypertension, Stroke Mother -: Hypertension - Social History Smoking Status: Never smoker Alcohol use: Yes CD- Drugs: No Caffeine use: Yes Place of Residence: Home Review of Systems PER HPI Physical Examination - Vital Signs Temperature: 97.6 F Blood Pressure: 115/82 Pulse: 78 Respirations: 16 Pulse Ox (%): 97 - Physical Exam General: Alert, In no apparent distress, Oriented x3 HEENT: Atraumatic, Normocephalic Neck: Supple, JVD not distended Respiratory: Clear to auscultation bilaterally, Normal air movement Cardiovascular: No edema, Normal pulses Gastrointestinal: Normal bowel sounds, Tenderness (Generalized, diffuse) Musculoskeletal: No clubbing, No swelling Integumentary: No rashes, No breakdown Neurological: Normal gait, Normal speech - Studies Laboratory Data (last 24 hrs) 10/03/23 10/03/23 10/03/23 16:52 14:40 14:40 WBC 17.60 H Hgb 16.0 Hct 47.2 Plt Count 315 PT 14.6 H INR 1.34 APTT 39.4 H Sodium 137 Potassium 4.0 BUN 14 Creatinine 1.21 Glucose 117 H Total Bilirubin 0.6 AST 13 L ALT 36 Alkaline Phosphatase 74 Lipase 29 Assessment and Plan - Plan Assessment plan Abdominal pain Acute appendicitis Surgery consult, IV fluids, IV antibiotics, as needed analgesic Atrial fibrillation Chronic anticoagulation Telemetry Resume p.o. Eliquis, sotalol Full code Diet n.p.o. after midnight DVT SCDs Discharge Plan: Home Plan to discharge in: 24 Hours - Advance Directives Does patient have a Living Will: No Does patient have a Durable POA for Healthcare: No - Code Status/Comfort Care Code Status: Full Code Critical Care: No Time Spent Managing Pts Care (In Minutes): 55
--- NOTE | 2023-10-04 07:30 | P.DS ---
Admission Date: 10/03/23 Discharge Date: 10/05/23 Disposition: ROUTINE DISCHARGE Discharge Condition: FAIR Reason for Admission: Abdominal pain Brief History of Present Illness: 38-year-old male with a past medical history of hypertension, atrial fibrillation on Eliquis 5 mg twice daily. Presented to the emergency room with diffuse abdominal pain. He reports symptoms started last night, does not radiate, reports associated fever, nausea vomiting. Abdominal pain described as cramping, he reports symptoms are not relieved by anything. He has not taken anything [id number]. CT evaluation admit for acute appendicitis with surgery consulted. Laboratory evaluation leukocytosis WBC 17.60, early left shift, - Physical Exam General: Alert, In no apparent distress, Oriented x3 HEENT: Atraumatic, Normocephalic Neck: Supple, JVD not distended Respiratory: Clear to auscultation bilaterally, Normal air movement Cardiovascular: No edema, Normal pulses Gastrointestinal: Normal bowel sounds, Tenderness (Generalized, diffuse) Musculoskeletal: No clubbing, No swelling Integumentary: No rashes, No breakdown Neurological: Normal gait, Normal speech Hospital Course: 38 year-old female patient presented with abdominal pain. Was noted to have appendicitis. Condition improved with IV antibiotics, as needed analgesics, surgical evaluation. Status post laparoscopic appendectomy [address] Sorensen. Patient tolerating diet, stable for discharge to home with follow-up appointment with primary care physician, follow-up with the surgeon after discharge. PROBLEM: Appendicitis Discharge medications Augmentin 1 p.o. twice daily for 7 days Hydrocodone 1 p.o. 6 hours as needed for pain Instructed not to drive while on as needed analgesics. No heavy lifting greater than 10 pounds Continue home medicines as previously prescribed GOAL: Clear understanding of disease process INSTRUCTIONS: Physician Discharge Instructions: -DC IV and DC home -Follow-up with PCP in 1 to 2 weeks -Please call Dr. Clark at [phone] if any questions regarding hospital stay -Please call nursing station at [phone] if any nursing or medication questions -Return to the emergency room if symptoms worsen Diet: ADA, low sodium Activity: Fall precautions Vital Signs/Physical Exam: Temp Pulse Resp BP Pulse Ox 97.6 F 78 16 115/82 97 10/04/23 07:28 10/04/23 07:28 10/04/23 07:28 10/04/23 07:28 10/04/23 07:28 Laboratory Data at Discharge: WBC 15.20 thou/uL (4.3-10.9) H 10/04/23 03:22 Hgb 14.5 g/dL (13.6-17.9) D 10/04/23 03:22 Hct 43.0 % (39.6-49.0) 10/04/23 03:22 Plt Count 252 thou/uL (152-406) 10/04/23 03:22 PT 14.6 SECONDS (9.5-12.5) H 10/03/23 16:52 INR 1.34 10/03/23 16:52 APTT 39.4 SECONDS (24.3-36.9) H 10/03/23 16:52 Sodium 139 mEq/L (136-145) 10/04/23 03:22 Potassium 3.8 mEq/L (3.5-5.1) 10/04/23 03:22 BUN 9 mg/dL (7-18) 10/04/23 03:22 Creatinine 1.21 mg/dL (0.70-1.30) 10/04/23 03:22 Glucose 95 mg/dL (74-106) 10/04/23 03:22 Total Bilirubin 0.9 mg/dL (0.2-1.0) 10/04/23 03:22 AST 8 U/L (15-37) L 10/04/23 03:22 ALT 26 U/L (16-61) 10/04/23 03:22 Alkaline Phosphatase 62 U/L (45-117) 10/04/23 03:22 Lipase 29 U/L (13-75) 10/03/23 14:40 Home Medications: Losartan Potassium 100 mg PO DAILY 05/17/22 Apixaban [Eliquis *] 5 mg PO BID #60 tablet 05/18/22 Cyanocobalamin/Cobamamide [Vitamin B-12 5,000 Mcg Tab Sl] 1 each SL DAILY #30 tab 05/18/22 Sotalol HCl [Betapace*] 80 mg PO BID #60 tab 05/18/22 Amlodipine Besylate 5 mg PO BID 10/03/23 Amox/Clavulanate [Augmentin 875-125 Tab] 1 each PO BID #14 tab 10/05/23 Hydrocodone 10/APAP 325 [Banks 10/325] 1 tab PO Q6H PRN #20 tab 10/05/23 New Medications: Amox/Clavulanate [Augmentin 875-125 Tab] 1 each PO BID #14 tab Hydrocodone 10/APAP 325 [Banks 10/325] 1 tab PO Q6H PRN #20 tab PRN Reason: Pain Physician Discharge Instructions: -DC IV and DC home -Follow-up with PCP in 1 to 2 weeks -Follow-up with general surgeon, Dr. Sorensen, in 1 to 2 weeks -Follow-up with cardiology in 4 to 6 weeks -Please call Dr. Clark at [phone] if any questions regarding hospital stay -Please call nursing station at [phone] if any nursing or medication questions -Return to the emergency room if symptoms worsen FRom Dr Sorensen KEep dressing intact until tomorrw then remove outer dressing, shower and cover alden with antibiotic ointment and band aid No heavy lifting Diet: AHA Activity: No lifting more than 10 lbs Followup: Davonte Sorensen MD [ACTIVE - CAN ADMIT] - 1-2 Weeks NONE,NONE [Primary Care Provider] - Time spent managing pt's care (in minutes): 55
[2023-10-04] MEDS: SUCCINYLCHOLINE 20 MG/ML (10 ML) IV ONE (07:48)
--- NOTE | 2023-10-04 08:26 | P.HP ---
Date of Service: 10/03/23 Certification for Inpatient Patient admitted to: Inpatient With expected LOS: <2 Midnights Practitioner: I am a practitioner with admitting privileges, knowledge of patient current condition, hospital course, and medical plan of care. Services: Services provided to patient in accordance with Admission requirements found in Title 42 Section 412.3 of the Code of Federal Regulations Patient History Date of Service: 10/03/23 Reason for admission: Abdominal pain History of Present Illness: Patient is a 38-year-old male with a past medical history of hypertension, atrial fibrillation on Eliquis 5 mg twice daily. Presented to the emergency room with diffuse abdominal pain. Pain started off in the epigastric region. It went down to the right lower quadrant. Now it is jumping to the left lower quadrant. He got pain medication in the emergency room and he is feeling much better. He reports symptoms started last night after he had eaten at [employer], does not radiate, reports associated fever, nausea vomiting. Abdominal pain described as cramping, he reports symptoms are not relieved by anything. He has not taken anything [id number]. CT evaluation admit for acute appendicitis with surgery consulted. Patient does have mostly pain in McBurney's pt. patient was evaluated by general surgery and patient will be taken to the operating room for a laparoscopic appendectomy in the morning. Allergies No Known Allergies Allergy (Verified 10/03/23 21:44) Home Medications: Losartan Potassium 100 mg PO DAILY 05/17/22 Apixaban [Eliquis] 5 mg PO BID #60 tablet 05/18/22 Cyanocobalamin/Cobamamide [Vitamin B-12 5,000 Mcg Tab Sl] 1 each SL DAILY #30 tab 05/18/22 Sotalol HCl [Betapace*] 80 mg PO BID #60 tab 05/18/22 Amlodipine Besylate 5 mg PO BID 10/03/23 - Past Medical/Surgical History Has patient received pneumonia vaccine in the past: No Diabetic: No -: HTN -: Afib -: Obesity - Family History Father -: Heart disease, Hypertension, Stroke Mother -: Hypertension - Social History Smoking Status: Never smoker Alcohol use: Yes CD- Drugs: No Caffeine use: Yes Place of Residence: Home Review of Systems PER HPI Physical Examination - Vital Signs reviewed - Physical Exam General: Alert, In no apparent distress, Oriented x3 HEENT: Atraumatic, Normocephalic Neck: Supple, JVD not distended Respiratory: Clear to auscultation bilaterally, Normal air movement Cardiovascular: No edema, Normal pulses Gastrointestinal: Normal bowel sounds, Tenderness (Generalized, diffuse) Musculoskeletal: No clubbing, No swelling Integumentary: No rashes, No breakdown Neurological: Normal gait, Normal speech Assessment and Plan - Plan Assessment plan Abdominal pain Acute appendicitis Surgery consult, IV fluids, IV antibiotics, as needed analgesic Atrial fibrillation Chronic anticoagulation Telemetry Continue sotalol. Hold Eliquis for the time being. Will resume it after surgery as long as there is no bleeding issues. Full code Diet n.p.o. after midnight DVT SCDs Discharge Plan: Home Plan to discharge in: 24 Hours - Advance Directives Does patient have a Living Will: No Does patient have a Durable POA for Healthcare: No - Code Status/Comfort Care Code Status: Full Code Critical Care: No Time Spent Managing Pts Care (In Minutes): 55
--- NOTE | 2023-10-04 09:09 | CON ---
Date of Consultation: 10/03/2023 History Of Present Illness: This patient was seen in the ER. This is a case of a 38-year-old patien t who comes to us with history of atrial fibrillation, blood thinners, and hypertension, presented to the room with mild generalized tenderness. He stated it improved. He was not sure what it was, so he shows in the ER and in the ER was found to have the early appendicitis. He just took his blood th inners. He denies any dysuria, hematuria, hematochezia, melena. Denies any recent traveling out of the country, denies any family member sick at home. He states his AFib was diagnosed many years ago, about 9 years ago, but since then he has just been taking blood thinners with no complications. Allergies: NONE KNOWN. Medications: Losartan, Eliquis, vitamin B12, Betapace, amlodipine. Past Medical History: As above. Family History: Includes hypertension and heart disease. Social History: He does not smoke. He does not drink alcohol. Review of Systems: Nausea. No vomiting. No fever. See HPI. Physical Examination: Vital Signs: Reviewed. Blood pressure within normal limits. General: The patient is awake, alert, in no distress. HEENT: Pupils are equal and reactive. Anicteric. Neck: Supple. Chest: Clear. Heart: S1, S2. Abdomen: Soft and depressible. There is periumbilical tenderness, guarding. No rebound. Rectal: Deferred. Extremities: Good capillary refill. Laboratory Data: Blood work shows WBC count of 17. INR is 1.34. CAT scan of the abdomen and pelvis interpreted by Dr. Ragland as finding suggestive of acute early appendicitis with distention of the p roximal aspect of the appendix with an appendicolith. Assessment: A 38-year-old patient with an abdominal pain, periumbilical. CAT scan was done, found t o have early appendicitis. The patient just took his blood thinners, so we are going to admit him to the hospital, start antibiotics, start IV hydration and then proceed in the next few hours with lapa roscopic possible open appendectomy with benefits, alternatives, and risks including, but not limited to infection, bleeding, damage to adjacent structures, anesthesia complication, negative appendix, h ematoma, MA, and even . He took his Eliquis few hours ago. We going to let some hours pass sin ce he is stable at this moment and then proceed. There is still risk of bleeding, but at the same ti me, we have to consider this patient has appendicitis and although he does not have peritonitis at th is time, we are trying to minimize the chance of rupture. SÁNCHEZ/RHIANNON Voice ID: [id number] Report ID: [id number]
--- NOTE | 2023-10-04 09:31 | P.BOP ---
Preoperative diagnosis: acute appendicitis, A-fib on blood thinners Postoperative diagnosis: same Primary procedure: Laparoscopic appendectomy Estimated blood loss: <10cc Specimen: appendix Findings: as above Anesthesia: General Complications: None Transferred to: Recovery Room Condition: Good
[2023-10-04] MEDS: SOTALOL HCL 80 MG TAB PO ONE (10:03)
--- NOTE | 2023-10-04 15:07 | P.PN ---
Subjective Date of Service: 10/04/23 Chief Complaint: Abdominal pain N.p.o. for appendicitis, plan appendectomy abdominal pain controlled with as needed medication - Physical Exam General: Alert, In no apparent distress, Oriented x3 HEENT: Atraumatic, Normocephalic Neck: Supple, JVD not distended Respiratory: Clear to auscultation bilaterally, Normal air movement Cardiovascular: No edema, Normal pulses Gastrointestinal: Normal bowel sounds, Tenderness (Generalized, diffuse) Musculoskeletal: No clubbing, No swelling Integumentary: No rashes, No breakdown Neurological: Normal gait, Normal speech Physical Examination - Vital Signs Temperature: 97.1 F Blood Pressure: 118/65 Pulse: 90 Respirations: 16 Pulse Ox (%): 98 - Studies Laboratory Data (last 24 hrs) 10/03/23 10/03/23 10/03/23 16:52 14:40 14:40 WBC 17.60 H Hgb 16.0 Hct 47.2 Plt Count 315 PT 14.6 H INR 1.34 APTT 39.4 H Sodium 137 Potassium 4.0 BUN 14 Creatinine 1.21 Glucose 117 H Total Bilirubin 0.6 AST 13 L ALT 36 Alkaline Phosphatase 74 Lipase 29 Assessment And Plan - Plan Assessment and Plan - Plan Assessment plan Abdominal pain Acute appendicitis Surgery consult, IV fluids, IV antibiotics, as needed analgesic 3/[address] Roach Atrial fibrillation Chronic anticoagulation Telemetry Continue sotalol. Hold Eliquis for the time being. Will resume it after surgery as long as there is no bleeding issues. Full code Diet n.p.o. after midnight DVT SCDs Discharge Plan: Home Plan to discharge in: 24 Hours Discharge Plan: Home Critical Care: No Time Spent Managing PTS Care (In Minutes): 35
[2023-10-04] MEDS: HYDROCODONE/APAP 5/325 MG TAB PO PRN (15:44)
--- NOTE | 2023-10-04 17:04 | EKG ---
Test Date: 2023-10-04 Test Time: 05:02:16 Cooperative Education Coordinator: HB MEASUREMENT RESULTS: Intervals: Rate: 83 [place]: QRSD: 90 QT: 362 QTc: 425 [place]: P: [place]: QRS: 83 T: -6 INTERPRETIVE STATEMENTS: Atrial fibrillation with premature ventricular or aberrantly conducted complexes Nonspecific T wave abnormality, probably digitalis effect Abnormal ECG Compared to ECG 05/17/2022 12:08:08 Ventricular premature complex(es) now present T-wave abnormality now present Electronically Signed On 10-04-23 17:02:24 CERTIFIED NURSE PRACTITIONER by Jose L Davenport
[2023-10-04] MEDS ORDERED: PIPER TAZO 3.375 GM in NA CHLORIDE 0.9% 100 ML IV SCH (17:30)
[2023-10-04] MEDS: SOTALOL HCL 80 MG TAB PO SCH (17:34)
[2023-10-04] MEDS: AMLODIPINE 5 MG TAB PO SCH (19:53)
[2023-10-04] MEDS: MORPHINE 2 MG/ML SYR IV PRN (21:06)
[2023-10-04] MEDS: INFLUENZA VACCINE (for 6+ mo) 0.5 ML DOSE IMVAC ONE (21:30)
[2023-10-04 21:33] VITALS: O2SAT 95
[2023-10-04] MEDS: MORPHINE 2 MG/ML SYR IV ONE (22:08)
[2023-10-05] MEDS: APIXABAN 5 MG TABLET PO SCH (05:00)
[2023-10-05 05:03] LABS: Absolute Lymphocytes (CBC) 1.5 K/uL (0.7-4.9); Basophils % 0.2 % (0-1.3); Hematocrit 36.1 % (39.6-49.0); Lymphocytes % 11.6 % (15.3-44.8); MCV 87.5 fL (80-100); MPV 8.3 fL (7.6-11.3); Platelets 248 thou/uL (152-406); RBC Red Blood Cell Count 4.13 M/uL (4.33-5.43)
[2023-10-05] MEDS: CYANOCOBALAMIN 1,000 MCG TAB PO SCH (08:50)
[2023-10-05] MEDS: LOSARTAN POTASSIUM 50 MG TABLET PO SCH (08:52)
[2023-10-05] MEDS: HYDROCODONE/APAP 10/325 TAB PO PRN (08:55)
[2023-10-05 17:51] VITALS: BP 118/65; TEMP 97.1
== END 2023-10-05 16:04 | disposition home or self-care (01) ==
LOC: ER 13:40 → ERHOLD 17:08 → 2ND 21:16
PROVIDERS: ADMIT Hospitalist; ATTEND Hospitalist
PROC: 0DTJ4ZZ Resection of Appendix, Percutaneous Endoscopic Approach (ICD-10-PCS; principal; 2023-10-04 07:30)
DX: K35.80 Unspecified acute appendicitis (principal); I10 Essential (primary) hypertension; I48.11 Longstanding persistent atrial fibrillation; Z79.01 Long term (current) use of anticoagulants
CPT/HCPCS: 44970; 93005; 87040 ×2; 85025 ×3; 81001; 80048; 36415 ×2; 85610; 83605; 88304; 85730; 83690; 80053 ×2; 74177; 94010 ×2; 99285; Q9967; J2704; J2543 ×5; J2001; J2250; J3010; J1100; J2270; J2405; J0744; J7120; J7030 ×4; G0378